=== PATIENT | male | born 1950 | race Caucasian/White ===

== ENCOUNTER → 2024-12-09 | Outpatient (CLI) | payer MEDICARE ==
[2024-12-09 11:48] LABS: African American GFR (CKD) >90 (>60 ml/min/1.73 sqM); Blood Urea Nitrogen 12 mg/dL (9-20); Non-African American GFR(CKD) 84 (>60 ml/min/1.73 sqM)
--- NOTE | 2024-12-09 12:45 | CT ---
EXAMINATION TYPE: CT soft tissue neck w con DATE OF EXAM: 12/09/2024 COMPARISON: NONE CLINICAL INDICATION: Male, 74 years old with history of R49.9 UNSPECIFIED VOICE AND RESONANCE DISORDE R, Chronic sore throat/loss of voice x2 months, Started after pt was prescribed various inhalers for COPD. TECHNIQUE: CT scan of the neck is performed with IV Contrast, patient injected with 100 mL of Isovue 300, axial images are obtained, coronal and sagittal reformatted images are reviewed. CT DLP: 696.90 mGycm. Automated Exposure Control for Dose Reduction was Utilized. FINDINGS: Airway: No gross abnormality seen. Parotid/submandibular glands: No gross abnormality seen. Carotid/Vascular Structures: No suspicious abnormality. Osseous Structures: Moderate to severe disc space narrowing and spurring C4-C5 through C6-C7 levels i s seen . Slight scoliotic curvature to the cervicothoracic spine is noted on coronal images. Multilev el facet degenerative changes are present bilaterally Other: Mild to moderate mucosal thickening inferior aspect of bilateral maxillary sinuses is seen. Mi ld to moderate opacification bilateral ethmoid sinuses anteriorly is noted. Small caliber draining ve ssels in the left neck and upper extremity noted. No greater than 1.0 cm neck adenopathy. Some subcen timeter scattered lymph nodes are seen. IMPRESSION: Patent airway. No suspicious findings to account for patient's clinical symptoms. [facility], , 12/09/2024 12:43 PM
== END | disposition home or self-care (01) ==
LOC: RADCTMAIN 10:55
PROVIDERS: ATTEND Internal Medicine
DX: R49.9 Unspecified voice and resonance disorder (principal); J44.9 Chronic obstructive pulmonary disease, unspecified
CPT/HCPCS: 82565; 84520; 70491; Q9967